=== PATIENT | female | born 1955 | race Caucasian/White ===

== ENCOUNTER 2020-11-20 15:41 | Emergency (ER) | payer OTHER ==
[2020-11-20 16:52] LABS: BILIRUBIN NEGATIVE (NEGATIVE); BLOOD TRACE-LYSED Ery/uL (NEGATIVE); CLARITY CLEAR (CLEAR); COLOR YELLOW (YELLOW); GLUCOSE (U) NORMAL (NORMAL); LEUKOCYTES NEGATIVE Leu/uL (NEGATIVE); NITRITE NEGATIVE (NEGATIVE); PROTEIN NEGATIVE (NEGATIVE); UROBILINOGEN 0.2 mg/dL (0.2-1.0)
[2020-11-20 17:00] LABS: SQUAMOUS EPITHELIAL CELLS RARE
[2020-11-20 17:15] LABS: BASOPHIL 0.4 % (0-2); EOSINOPHIL 1.2 % (0-7); HCT 40.7 % (37.0-47.0); HGB 13.4 g/dl (12.5-16.0); LYMPHOCYTE 28.1 % (15-48); MCH 31.6 pg (25.0-31.0); MCHC 32.9 g/dL (32.0-36.0); MONOCYTE 7.7 % (0-12); MPV 10.4 fL (6.0-9.5); NEUTROPHIL 62.3 % (41-80); NRBC 0; PLT 259 K/uL (150-400); RBC 4.24 M/uL (4.20-5.40); RDW 12.6 % (11.5-14.0); WBC 7.6 K/uL (4.0-10.5)
[2020-11-20 17:54] LABS: BILIRUBIN - TOTAL 0.5 mg/dL (0.2-1.0); CREATININE 0.58 mg/dL (0.51-0.95); GLOBULIN (CALCULATION) 2.8 g/dL; POTASSIUM 3.4 mmol/L (3.5-5.1); TOTAL PROTEIN 6.8 g/dL (6.4-8.2)
[2020-11-20] MEDS ORDERED: PRILOSEC20 MG PO (19:30)
[2020-11-20] MEDS ORDERED: AMPICILLIN TRI500 MG PO (19:30)
[2020-11-20] MEDS ORDERED: METRONIDAZOLE500 MG PO (19:30)
[2020-11-20] MEDS ORDERED: DIFLUCAN150 MG PO (19:31)
== END 2020-11-20 20:15 | disposition home or self-care (01) ==
LOC: FER 15:41
PROVIDERS: Emergency Medicine
DX: A04.8 Other specified bacterial intestinal infections (principal); R31.29 Other microscopic hematuria; K57.30 Diverticulosis of large intestine without perforation or abscess without bleeding; M54.5 Low back pain; Z90.49 Acquired absence of other specified parts of digestive tract
CPT/HCPCS: 36415; 71045; 72100; 80053; 81001; 83690; 84484; 85025; 87339; 93005

== ENCOUNTER 2020-12-04 09:33 | Day surgery (SDCO) | payer OTHER ==
[~2020-12-04] VITALS: Ht 167.6 cm; Wt 66.7 kg
[~2020-12-04 09:33] MED LIST: AMPICILLIN TRI500 MG PO; DIFLUCAN150 MG PO; METRONIDAZOLE500 MG PO; PRILOSEC20 MG PO
[2020-12-04 11:47] LABS: BASOPHIL 0.5 % (0-2); EOSINOPHIL 1.4 % (0-7); HCT 43.3 % (37.0-47.0); HGB 14.3 g/dl (12.5-16.0); LYMPHOCYTE 15.8 % (15-48); MCH 31.7 pg (25.0-31.0); MONOCYTE 8.2 % (0-12); MPV 10.7 fL (6.0-9.5); NEUTROPHIL 73.7 % (41-80); NRBC 0; PLT 269 K/uL (150-400); RBC 4.51 M/uL (4.20-5.40); RDW 12.7 % (11.5-14.0); WBC 8.4 K/uL (4.0-10.5)
[2020-12-04 11:52] LABS: INR 1.19 (0.9-1.2); PROTHROMBIN TIME 14.3 SECONDS (11.4-13.6); PTT 30.8 SECONDS (22.2-34.7)
[2020-12-04 11:53] LABS: D-DIMER 0.76 ug/mLFEU (0.00-0.41)
[2020-12-04 12:06] LABS: ALBUMIN 4.1 g/dL (3.4-5.0); BILIRUBIN - TOTAL 0.6 mg/dL (0.2-1.0); BUN/CREAT RATIO (CALC) 26.2 RATIO; CREATININE 0.61 mg/dL (0.51-0.95); POTASSIUM 4.1 mmol/L (3.5-5.1); TOTAL PROTEIN 7.1 g/dL (6.4-8.2)
[2020-12-04 18:15] LABS: CORONAVIRUS 2019 SARS-COV-2 NEGATIVE (NEGATIVE); INFLUENZA A NAA NEGATIVE (NEGATIVE)
[2020-12-05 05:44] LABS: BASOPHIL 0.7 % (0-2); EOSINOPHIL 3.3 % (0-7); HCT 40.6 % (37.0-47.0); HGB 13.4 g/dl (12.5-16.0); LYMPHOCYTE 33.8 % (15-48); MCH 31.5 pg (25.0-31.0); MCV 95.5 fL (78.0-100.0); MONOCYTE 9.5 % (0-12); MPV 10.3 fL (6.0-9.5); NEUTROPHIL 52.5 % (41-80); NRBC 0; PLT 279 K/uL (150-400); RBC 4.25 M/uL (4.20-5.40); RDW 12.8 % (11.5-14.0); WBC 8.2 K/uL (4.0-10.5)
[2020-12-05 06:23] LABS: ALBUMIN 3.4 g/dL (3.4-5.0); BILIRUBIN - TOTAL 0.6 mg/dL (0.2-1.0); BUN/CREAT RATIO (CALC) 24.2 RATIO; CREATININE 0.62 mg/dL (0.51-0.95); GLOBULIN (CALCULATION) 2.9 g/dL; POTASSIUM 3.5 mmol/L (3.5-5.1); TOTAL PROTEIN 6.3 g/dL (6.4-8.2)
[2020-12-05 09:10] LABS: FT4 (FREE T4) 1.2 ng/dL (0.76-1.46)
--- NOTE | 2020-12-05 09:39 | NUR ---
12/05/20 Ms. Corral lives alone. She is independent in the home and community. She is employed at [employer]. Discharge is anticipated for today. No discharge planning needs are anticipated.
[2020-12-05] MEDS ORDERED: ASPIRIN EC81 MG PO (10:10)
== END 2020-12-05 11:07 | disposition home or self-care (01) ==
LOC: FER 09:33 → FMS 16:30
PROVIDERS: Emergency Medicine; Internal Medicine Cardiovascular Disease; Nurse Practitioner; ADMIT Internal Medicine
DX: R07.89 Other chest pain (principal); R55 Syncope and collapse; A04.8 Other specified bacterial intestinal infections; Z20.822 Contact with and (suspected) exposure to COVID-19
CPT/HCPCS: 36415; 71045; 71275; 80053; 80061; 83735; 84439; 84443; 84481; 84484; 85025; 85379; 85610; 85730; 93005; 94010; G0378; J1650; Q9967; U0002